=== PATIENT | female | born 1995 | race Caucasian/White ===

== ENCOUNTER 2023-02-02 16:55 | Inpatient (IN) ==
[2023-02-02 17:07] LABS: Urine Collection Time OB 24 hr
[2023-02-02 17:09] LABS: Urine Total Volume OB 1550 mL
[2023-02-02 17:35] LABS: Ur TP Concentration Obstetric 82 mg/dL
[2023-02-02] MEDS ORDERED: Penicillin G Potassium IV 5,000,000 UNITS in NS 0.9% 100 ml BAG 100 ML IVPB ONE (17:45)
[2023-02-02 17:56] LABS: ABS Lymphocytes 1.9 10^3/uL (1.0-4.8); ABS Monocytes 0.6 10^3/uL (0.0-0.9); ABS Neutrophils 5.2 10^3/uL (1.5-7.6); ABS Nucleated RBC 0.01 10^3/ul; Eosinophil % 0.3 %; Hematocrit 36.4 % (35-45); Hemoglobin 12.7 g/dL (11.5-14.3); Lymphocyte % 24.9 %; Mean Corpuscular Hemoglobin 29.6 pg (27-33); Mean Corpuscular Volume 84.6 fL (80-97); Mean Platelet Volume 10.8 fL (7.5-11.2); Nucleated Red Blood Cells % 0.2 /100 WBC (0.0-0.4); Platelet Count 168 10^3/uL (150-450); Red Blood Count 4.31 10^6/uL (3.63-4.92); Red Cell Distribution Width 14.1 % (12-17); White Blood Count 7.7 10^3/uL (3.8-11.8)
[2023-02-02 18:07] LABS: Calcium 9.1 mg/dL (8.6-10.3); Creatinine, Serum 0.63 mg/dL (0.51-0.95); Total Protein 6.3 g/dL (6.4-8.9); Uric Acid 6.3 mg/dL (2.3-6.6); eGFR CKD-EPI 126.2 (>60)
[2023-02-02 18:08] LABS: Albumin 3.5 g/dL (3.2-5.2); Albumin/Globulin Ratio 1.3 (1-3); Globulin 2.8 g/dL (2-4); Total Bilirubin 0.2 mg/dL (0.2-1.0)
[2023-02-02] MEDS ORDERED: miSOPROStol 100 mcg TAB PO ONE ×2 (18:38→22:59)
[2023-02-02 19:59] LABS: Urine Benzodiazepine Screen None Detected (None Detect); Urine Cannabinoids Screen None Detected (None Detect); Urine Opiates Screen None Detected (None Detect)
[2023-02-02] MEDS ORDERED: miSOPROStol 100 mcg TAB ONE (23:41)
[2023-02-03] MEDS ORDERED: Oxytocin in LR 20,000 MILLI.UNIT/1,000 ML BAG IV SCH (07:45)
[2023-02-03] MEDS: Lactated Ringers 1000 ml BAG 1,000 ML IV SCH ×3 (08:33→18:19)
[2023-02-03] MEDS ORDERED: Promethazine INJ(RESTRICTED) 25 MG/ML 1 ml VIAL IV PRN (12:07)
[2023-02-03] MEDS: Penicillin G Potassium IV 3,000,000 UNITS in NS 0.9% 100 ml BAG 100 ML IVPB SCH ×2 (14:45→20:22)
[2023-02-03] MEDS ORDERED: OBEPIDURAL (200 ML) 200 ML EPIDURAL ONE (14:56)
[2023-02-03] MEDS ORDERED: Lidocaine 1.5% EPI 1:200,000 30 ML SDV ONE (14:57)
[2023-02-03] MEDS ORDERED: Phenylephrine 40 mcg/mL 10mL (400mcg) SYRINGE IV PUSH PRN ×2 (15:34)
[2023-02-03] MEDS ORDERED: Lactated Ringers 1000 ml BAG 1,000 ML IV ONE (15:34)
[2023-02-03] MEDS ORDERED: Lactated Ringers 1000 ml BAG 500 ML IV PRN ×2 (15:34)
[2023-02-03] MEDS ORDERED: Sodium Citrate/Citric Acid LIQ 15 ML UDC PO PRN (15:34)
[2023-02-03] MEDS ORDERED: Lactated Ringers 1000 ml BAG 1,000 ML IV SCH ×3 (16:00→20:00)
[2023-02-03] MEDS ORDERED: OBEPIDURAL (200 ML) 200 ML EPIDURAL SCH (16:00)
[2023-02-03] MEDS ORDERED: Witch Hazel PAD JAR TOPICAL PRN (19:35)
[2023-02-03] MEDS ORDERED: Dibucaine 1% OINT 28.35 GM TUBE PR PRN (19:35)
[2023-02-03 20:54] LABS: Urine Appearance Cloudy; Urine Bacteria Absent (Absent); Urine Bilirubin Negative (Negative); Urine Blood Negative (Negative); Urine Color Yellow; Urine Glucose Negative (Negative); Urine Ketones 2+ (Negative); Urine Nitrite Negative (Negative); Urine Protein 3+(>=500 mg/dL) (Negative); Urine Red Blood Cell 2+(6-10/hpf) (Absent); Urine Specific Gravity 1.029 (1.002-1.030); Urine Squamous Epithelial Cell Present (Absent); Urine Urobilinogen Negative (Negative); Urine White Blood Cell Trace(0-5/hpf) (Absent)
[2023-02-04 06:35] LABS: ABS Lymphocytes 2.4 10^3/uL (1.0-4.8); ABS Monocytes 1.3 10^3/uL (0.0-0.9); ABS Neutrophils 9.2 10^3/uL (1.5-7.6); Eosinophil % 0.3 %; Hematocrit 31.6 % (35-45); Lymphocyte % 18.2 %; Mean Corpuscular Hemoglobin 29.6 pg (27-33); Mean Corpuscular Hgb Conc 34.8 g/dL (31-36); Mean Corpuscular Volume 85.1 fL (80-97); Mean Platelet Volume 10.4 fL (7.5-11.2); Platelet Count 145 10^3/uL (150-450); Red Blood Count 3.71 10^6/uL (3.63-4.92); Red Cell Distribution Width 14.3 % (12-17)
[2023-02-05 09:18] VITALS: BP 142/81
== END 2023-02-05 17:50 | disposition home or self-care (01) | DRG 560 ==
LOC: MCHOBOUT 16:55 → MCHOB 17:46
PROVIDERS: ADMIT Midwife; ATTEND Midwife